=== PATIENT | male | born 1985 | race Caucasian/White ===

== ENCOUNTER 2017-05-17 15:34 | Emergency (ER) | payer OTHER ==
[~2017-05-17] VITALS: Ht 170.2 cm; Wt 63.6 kg
[~2017-05-17 15:34] MED LIST: ProAirHFA INH; QUET400T PO
[2017-05-17 15:37] VITALS: BP 130/85; PULSE 96; RESP 16; O2SAT 100
[2017-05-17 16:29] LABS: BASOPHILS % (AUTO) 0.3 % (0-3); EOSINOPHILS % (AUTO) 2.7 % (0-5); MONOCYTES % (AUTO) 9.6 % (4-12); Mean Corpuscular Hemoglobin 31.1 pg (27.0-35.0); Mean Corpuscular Volume 92.5 fL (81-100); NEUTROPHILS % (AUTO) 69.8 % (40-74); Platelet Count 176 bil/L (150-400)
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
--- NOTE | 2017-05-17 17:19 | DRSVH ---
PROCEDURE: X-RAY RIGHT HAND, MINIMUM THREE VIEWS ([id number]) INDICATIONS: swelling/pain r/o osteo TECHNIQUE: 3 views of the hand(s) acquired. COMPARISON: None. FINDINGS: Bones: No fractures or dislocations. No bony erosions or periosteal reaction. Carpal bones are nor fely aligned. No suspicious bony lesions. Soft tissues: No suspicious soft tissue calcifications. IMPRESSION: 1. No definite radiographic evidence of osteomyelitis. Dictated by: Mushtaq Cárdenas M.D. on 05/17/2017 at 17:16 Approved by: Mushtaq Cárdenas M.D. on 05/17/2017 at 17:17
[2017-05-17] MEDS ORDERED: Trimethoprim-Sulfa 160 mg-800 mg Tablet PO ONE (17:30)
[2017-05-17] MEDS ORDERED: HYDROcodone-APAP 10-325 mg PO ONE (17:30)
[2017-05-17] MEDS ORDERED: HYDR-4003 PO (18:01)
[2017-05-17] MEDS ORDERED: SULF1TAB7 PO (18:01)
[2017-05-17 18:44] VITALS: BP 127/82; PULSE 88; RESP 16; O2SAT 100
== END 2017-05-17 18:45 | disposition home or self-care (01) ==
LOC: SED 15:34
DX: L02.511 Cutaneous abscess of right hand (principal); M65.141 Other infective (teno)synovitis, right hand; L03.011 Cellulitis of right finger; F12.10 Cannabis abuse, uncomplicated; F17.200 Nicotine dependence, unspecified, uncomplicated
CPT/HCPCS: 10061; 36415; 73130; 80053; 85025; 85651; 86140; 87070; 87075; 87186; 87205; 99284; G0463

== ENCOUNTER 2017-07-20 03:41 | Emergency (ER) | payer OTHER ==
[~2017-07-20] VITALS: Ht 170.2 cm; Wt 60.9 kg
[~2017-07-20 03:41] MED LIST changes: +HYDR-4003 PO; +SULF1TAB7 PO
[2017-07-20 03:45] VITALS: BP 159/95; PULSE 104; RESP 18; O2SAT 100
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
[2017-07-20] MEDS ORDERED: FAMO20TA4 PO (07:04)
[2017-07-20] MEDS ORDERED: NAPR500T5 PO (07:04)
[2017-07-20 07:30] VITALS: BP 143/76; PULSE 82; RESP 16; O2SAT 100
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
== END 2017-07-20 07:25 | disposition home or self-care (01) ==
LOC: SED 03:41
DX: S20.212A Contusion of left front wall of thorax, initial encounter (principal); Y04.0XXA Assault by unarmed brawl or fight, initial encounter; Y93.89 Activity, other specified; Y99.8 Other external cause status; Y92.149 Unspecified place in prison as the place of occurrence of the external cause; J45.909 Unspecified asthma, uncomplicated; F17.200 Nicotine dependence, unspecified, uncomplicated; F12.10 Cannabis abuse, uncomplicated; Z79.51 Long term (current) use of inhaled steroids